=== PATIENT | female | born 1995 | race Two or more races ===

== ENCOUNTER 2023-05-26 13:07 | Emergency (ER) | payer OTHER ==
[2023-05-26 13:18] VITALS: BMI 35.2
[2023-05-26] MEDS ORDERED: SODIUM CHLORIDE 0.9% 500 ML INFUS.BAG IV ONE (13:37)
[2023-05-26] MEDS ORDERED: ACETAMINOPHEN 1000 MG/100 ML BAG IVPB ONE (13:37)
[2023-05-26 16:43] LABS: BASO % 0.2 % (0-2.0); EOS % 0.4 % (0-4.5); HEMATOCRIT 32.6 % (32.4-45.2); HEMOGLOBIN 10.7 GM/dL (10.7-15.3); LYMPH % 17.6 % (8-40); MCH 27.7 pg (25.7-33.7); MEAN PLT VOLUME 8.9 fl (7.5-11.1); MONO % 6.9 % (3.8-10.2); NEUT % 74.9 % (42.8-82.8); PLATELET COUNT 231 10^3/uL (134-434); RBC 3.87 M/mm3 (3.60-5.2); RDW 13.1 % (11.6-15.6); WHITE BLOOD COUNT 7.5 K/mm3 (4.0-10.0)
[2023-05-26 16:46] LABS: POTASSIUM 3.9 mmol/L (3.5-5.1)
[2023-05-26 16:48] LABS: BLOOD UREA NITROGEN 8.9 mg/dL (7-18); CALCIUM 8.9 mg/dL (8.5-10.1)
[2023-05-26 16:52] LABS: CREATININE 0.4 mg/dL (0.55-1.3); EPI CELLS 25 /uL (0-25.1); HYALINE CASTS 2 /uL (0-3.1); PH,URINE 5.5 (5.0-8.0); URINE APPEARANCE CLOUDY; URINE BACTERIA 3908 /uL (0-1359); URINE BILIRUBIN NEGATIVE (NEGATIVE); URINE COLOR YELLOW; URINE GLUCOSE (UA) NEGATIVE (NEGATIVE); URINE KETONE TRACE (NEGATIVE); URINE LEUK ESTERASE 1+ (NEGATIVE); URINE NITRITE NEGATIVE (NEGATIVE); URINE PROTEIN NEGATIVE (NEGATIVE); URINE WBC 199 /uL (0-25.8)
[2023-05-26] MEDS ORDERED: CEFTRIAXONE 1 GM in DEXTROSE 5%-WATER - 100 ML IVPB ONE (16:56)
[2023-05-26] MEDS ORDERED: cefTRIAXone SODIUM 1 GM VIAL ONE (16:58)
[2023-05-26 17:02] LABS: URINE RBC 47.9 /uL (0-23.9)
[2023-05-26 18:03] VITALS: TEMP 97.9
[2023-05-26 19:18] VITALS: BP 122/68; PULSE 78; RESP 16
== END 2023-05-26 20:40 | disposition home or self-care (01) ==
LOC: JER 13:07
PROC: 3E03329 Introduction of Other Anti-infective into Peripheral Vein, Percutaneous Approach (ICD-10-PCS; principal; 2023-05-26)
PROC: 3E033GC Introduction of Other Therapeutic Substance into Peripheral Vein, Percutaneous Approach (ICD-10-PCS; 2023-05-26)
DX: O99.893 Other specified diseases and conditions complicating puerperium (principal); R51.9 Headache, unspecified; O23.43 Unspecified infection of urinary tract in pregnancy, third trimester; Z3A.29 29 weeks gestation of pregnancy
CPT/HCPCS: 36415; 80048; 81003; 85025; 87086; 99284-25